=== PATIENT | male | born 1940 | race Caucasian/White ===

== ENCOUNTER 2017-01-08 13:04 | Inpatient (IN) | payer MEDICARE, BC ==
[~2017-01-08] VITALS: Ht 165.1 cm; Wt 68.0 kg
[~2017-01-08 13:04] MED LIST: ASPI-664 PO; ATOR20TA38 PO; CLOP75TA27 PO; LANT3I SC; NEPH PO; SEVE800T7 PO
[2017-01-08 13:20] VITALS: Ht 165.1 cm; Wt 68.0 kg
[2017-01-08] MEDS ORDERED: ACETAMINOPHEN 325 MG TAB PO ONE (15:00)
--- NOTE | 2017-01-08 15:25 | RADRPT ---
PROCEDURE: CT head without intravenous contrast CLINICAL INDICATION: Trauma. COMPARISON: None relevant listed. TECHNIQUE: Axial CT images from skull base to vertex with coronal and sagittal reformats. DOSE: The estimated administered radiation dose was CTDI vol = 42 mGy. DLP = 720 mGy-cm. One or mor e of the following dose reduction techniques were used: automated exposure control, adjustment of th e mA and/or kV according to patient size, or use of iterative reconstruction. FINDINGS: Parenchyma: No acute hemorrhage, large territorial infarction, or mass. Moderate amount of periventr icular and subcortical white matter hypodensity, a nonspecific finding often associated with chronic microangiopathy. Moderate generalized cerebral volume loss Ventricles: 8 mm homogeneously dense oval shaped lesion along the roof of the third ventricle, consi stent with the a colloid cyst No ventriculomegaly or ventricular effacement. Extra-axial spaces: No herniation or midline shift. Paranasal sinuses: Clear. Mastoids and middle ears: Clear. Visualized orbits: Bilateral lens replacements. Vessels: Mild calcified atherosclerotic arterial plaque. Bones: Normal. Extracranial soft tissues: Normal. Additional comment: None. IMPRESSION: 1. No acute intracranial hemorrhage. 2. 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 3. Chronic senescent findings characterized by volume loss and white matter changes. RPTAT: AA Physician Shayan Date Time Electronically viewed and signed by Physician Shayan on 01/08/2017 15:24 /
--- NOTE | 2017-01-08 15:40 | RADRPT ---
PROCEDURE: CT Cervical Spine without intravenous contrast CLINICAL INDICATION: Trauma. COMPARISON: None available. TECHNIQUE: Axial noncontrast CT images of the cervical spine with coronal and sagittal reformats. DOSE ESTIMATE: CTDI vol = 44 mGy. DLP = 1080 mGy-cm. One or more of the following dose reduction t echniques were used: automated exposure control, adjustment of the mA and/or kV according to patient size, or use of iterative reconstruction. FINDINGS: Alignment: Normal. Vertebrae: No fracture, vertebral body height loss, or destructive bone lesion. Discs: Mild desiccation with vacuum phenomenon at C4-C5. Degenerative change: Marked right C3-C4 facet arthropathy resulting in moderate right foraminal narr owing. Mild bilateral C4-C5 facet arthropathy. No significant central canal or foraminal narrowing. Paraspinal soft tissues: Normal. Visualized posterior fossa: Normal. Visualized neck: Cardiac device in the left chest. Mild calcified atherosclerotic arterial plaque. Visualized lung apices: Normal. Additional comment: None. IMPRESSION: 1. No acute fracture or subluxation. 2. Moderate degenerative changes at C3-C4. RPTAT: AA Physician Shayan Date Time Electronically viewed and signed by Physician Shayan on 01/08/2017 15:39 /
--- NOTE | 2017-01-08 15:50 | RADRPT ---
PROCEDURE: CT Lumbar Spine without intravenous contrast CLINICAL INDICATION: Low back pain after trauma. COMPARISON: None available. TECHNIQUE: Axial noncontrast CT images of the lumbar spine with coronal and sagittal reformats. DOSE ESTIMATE: CTDI vol = 20 mGy. DLP = 557 mGy-cm. One or more of the following dose reduction te chniques were used: automated exposure control, adjustment of the mA and/or kV according to patient size, or use of iterative reconstruction. FINDINGS: Segmentation: For this report the last well-formed disc is labeled L5-S1. Alignment: Normal. Vertebrae: No fracture, vertebral body height loss, or destructive bone lesion. Discs: No disc height loss. Degenerative change: T12-L1: 1 mm disc bulge, mild bilateral facet arthropathy, ligamentum flavum laxity without signific ant central canal narrowing. Mild bilateral foraminal narrowing. L1-L2: Moderate anterior endplate spurring. 2 mm disc bulge, ligamentum flavum laxity, and dorsal ep idural fat results in mild central canal narrowing, partial effacement of both lateral recesses, and mild left foraminal narrowing. L2-L3: 1 mm disc bulge, mild bilateral facet arthropathy, and ligamentum flavum laxity results in mo derate central canal narrowing, effacement of both lateral recesses, and moderate right foraminal na rrowing. L3-L4: Mild anterior endplate spurring. 2 mm disc bulge, moderate bilateral facet arthropathy, ligam entum flavum laxity, and dorsal epidural fat results in moderate to severe central canal narrowing, effacement of both lateral recesses, and moderate bilateral foraminal narrowing. L4-L5: 2 mm disc bulge, moderate bilateral facet arthropathy, ligamentum flavum laxity, and dorsal e pidural fat results in moderate to severe central canal narrowing, effacement of both lateral recess es, and moderate bilateral foraminal narrowing. L5-S1: 3 mm disc bulge, ligamentum flavum laxity, and circumferential epidural fat results in mild c entral canal air. Disc height loss contribute to mild bilateral foraminal narrowing. Para-vertebral soft tissues: Normal. Visualized abdomen and pelvis: Bilateral pleural effusions. Additional comment: Bony bridging about the sacroiliac joints. Aortoiliac atherosclerotic plaque. IMPRESSION: 1. Multilevel degenerative changes of the lumbar spine, most notable at L3-L4 and L4-L5. 2. Bilateral pleural effusions. RPTAT: AA France Baker, Physician Date Time Electronically viewed and signed by France Baker Physician on 01/08/2017 15:50 LG/
--- NOTE | 2017-01-08 15:58 | RADRPT ---
PROCEDURE: XR Chest. CLINICAL INDICATION: rib pain TECHNIQUE: Single frontal view of the chest was obtained COMPARISON: Chest x-ray 04/23/2015 FINDINGS: The previously seen right-sided central venous catheter has been removed. There are stable postsurgical changes of prior median sternotomy with mediasternotomy wires and medi astinal clips redemonstrated. Left chest wall dual lead pacer device is stable in position. The cardiac silhouette remains moderately enlarged. There are atherosclerotic calcifications of the aorta. There are decreased lung volume with increased bibasilar atelectasis compared to prior study. There is no mild blunting of the costophrenic angles bilaterally, suggesting trace bilateral pleural effusions. Mild central pulmonary vascular congestion is stable. No pneumothorax is identified. There are degenerative changes of the visualized spine. IMPRESSION: 1. Cardiomegaly and mild central pulmonary vascular congestion, stable. 2. Interval removal of right-sided central venous catheter. 3. Stable postsurgical changes prior CABG. 4. Left chest wall dual lead pacer device, stable. 5. Decreased lung volumes with increased bibasilar atelectasis. 6. New trace pleural effusions bilaterally. 7. Thoracic aortic atherosclerotic disease. RPTAT: GG Physician Michael Date Time Electronically viewed and signed by Physician Michael on 01/08/2017 15:58 /
[2017-01-08 16:12] LABS: ADD UMIC YES; UR ASCORBIC ACID NEGATIVE (NEGATIVE); UR BILIRUBIN (Dip) NEGATIVE (NEGATIVE); UR BLOOD (Dip) 1+ mg/dL (NEGATIVE); UR CLARITY SLIGHTLY CLOUDY (CLEAR); UR COLOR YELLOW (YELLOW); UR GLUCOSE (Dip) NEGATIVE (NEGATIVE); UR KETONES (Dip) TRACE mg/dL (NEGATIVE); UR LEUKOCYTE ESTERASE (Dip) 1+ Leu/ul (NEGATIVE); UR NITRITE (Dip) NEGATIVE (NEGATIVE); UR RBC 3 /HPF (0-5); UR SPECIFIC GRAVITY (Dip) 1.015 (1.003-1.030); UR TOTAL PROTEIN (Dip) 2+ mg/dl (NEGATIVE); UR UROBILINOGEN (Dip) NEGATIVE (NEGATIVE)
--- NOTE | 2017-01-08 17:06 | RADRPT ---
PROCEDURE: CT abdomen and pelvis without contrast. CLINICAL INDICATION: Pain status post fall TECHNIQUE: CT scan of the abdomen and pelvis without contrast was performed on a multislice [facility] utilizing axial imaging from the lung bases through the pubis symphysis. The patient was scann ed without intravenous contrast. Sagittal and coronal reformatted images were made. The CTDIvol is 11.36 mGy and the DLP is 831.92 mGycm. One of the following 3 does reduction techniques were used during this CT examination: 1) Automated exposure control 2) Adjustment of the mA +/- kV according to patient size or 3) Use of iterative reconstruction technique COMPARISON: No relevant priors FINDINGS: The lung bases are remarkable for bibasilar atelectasis or consolidation and moderate bilateral pleu ral effusions. Mild cardiomegaly is present with a dual lead pacemaker with leads in the right atriu m and right ventricle. The patient is status post median sternotomy. No pericardial effusion is pres ent. The visualized liver is normal size and attenuation. No focal lesions are present. The visualized sp devang, pancreas, decompressed gallbladder, and bilateral adrenal glands are normal. A small hiatal he rnia is present. The visualized kidneys demonstrate mild perinephric stranding. No evidence for hydroureteronephrosis or nephroureterolithiasis is present. The visualized aorta demonstrates vascular calcifications without aneurysmal dilatation. No evidence for ascites or pneumoperitoneum is present. No evidence for pathologic lymphadenopathy is present. The urinary bladder is mildly distended with a thickened wall. Recommend correlation with any prior urinary tract pathology. The prostate gland i s moderately enlarged and measures 3.6 cm AP by 5.5 cm in transverse dimensions. Recommend correlati on with prostate-specific antigen. No pelvic mass, lymphadenopathy, or free fluid is seen. There is no evidence of free air. The surrounding osseous structures are remarkable for generalized osteopenia. Degenerative changes a re present of the bilateral sacroiliac joints and the imaged spine. Diffuse idiopathic skeletal hyp erostosis is present in the thoracic spine. IMPRESSION: 1. Bibasilar atelectasis or consolidation and moderate bilateral pleural effusions. 2. Mild cardiomegaly and atherosclerotic vascular disease with bipolar pacemaker present. 3. No evidence for acute intra-abdominal or pelvic pathology. 4. Decompressed urinary bladder with thickened wall 5. Moderate prostatic enlargement and correlate with PSA. 6. Degenerative changes of the bilateral sacroiliac joints and the imaged spine is noted. RPTAT: HDC .Alena Kaye MD, Date Time Electronically viewed and signed by .Alena Kaye MD, on 01/08/2017 17:06 .C/
--- NOTE | 2017-01-08 17:10 | RADRPT ---
PROCEDURE: CT Chest. CLINICAL INDICATION: Chest pain following trauma TECHNIQUE: CT scan of the chest without contrast was performed on the [employer] CT scanner at [facility]. Sagittal and coronal reformatted images were obtained from the axial s ource images. The CTDIvol is 11.36 mGy and the DLP is 831.92 mGycm. One of the following 3 does reduction techniques were used during this CT examination: 1) Automated exposure control 2) Adjustment of the mA +/- kV according to patient size or 3) Use of iterative reconstruction technique COMPARISON: Chest x-ray 01/08/2017 FINDINGS: The visualized base of the neck and bilateral thyroid lobes are normal. The lungs are remarkable for bibasilar atelectasis or consolidation with moderate bilateral pleural effusions. No evidence for pulmonary nodules, masses, or pneumothorax is present. The central tracheobronchial tree is patent. The mediastinum is unremarkable without evidence for mass or lymphadenopathy. A small hiatal hernia is present. The vascular structures of the mediastinum are normal in course and caliber. Aortic vas cular calcifications and coronary artery calcifications are present. The heart size is remarkable fo r mild cardiomegaly without pericardial effusion. Pacemaker leads are noted in the right atrium and right ventricle para The visualized liver is normal size and attenuation without focal lesions. The imaged portions of th e spleen, pancreas, gallbladder, and bilateral adrenal glands are normal. The imaged portions of the kidneys are normal. The axillary regions, subpectoral regions, and supraclavicular regions are all unremarkable. The im aged portions of the spine demonstrate diffuse idiopathic skeletal hyperostosis without evidence for lytic or blastic lesions. The patient is status post median sternotomy with a left precordial dual lead pacemaker. IMPRESSION: 1. Bibasilar atelectasis or consolidation and moderate bilateral pleural effusions. 2. Small hiatal hernia 3. Mild cardiomegaly and atherosclerotic vascular disease 4. Left precordial dual lead pacemaker. RPTAT: HDC .Alena Kaye MD, Date Time Electronically viewed and signed by .Alena Kaye MD, on 01/08/2017 17:10 .C/
[2017-01-08] MEDS ORDERED: CEFTRIAXONE 1 GM/50 ML (PMX) 50 ML IVPB ONE ×2 (18:30→20:30)
[2017-01-08 19:04] LABS: BASOPHILS % 0.4 % (0.0-2.0); EOSINOPHILS # 0.1 10^3/ul (0.0-0.5); EOSINOPHILS % 0.6 % (0.0-7.0); HEMATOCRIT 32.5 % (42.0-52.0); HEMOGLOBIN 10.2 g/dl (14.0-18.0); LYMPHOCYTES # 1.2 10^3/ul (0.8-2.9); LYMPHOCYTES % 14.6 % (15.0-51.0); MEAN CORPUSCULAR HEMOGLOBIN 23.2 pg (29.0-33.0); MEAN CORPUSCULAR HGB CONC 31.4 g/dl (32.0-37.0); MEAN PLATELET VOLUME 12.1 fl (7.4-10.4); MONOCYTE # 0.4 10^3/ul (0.3-0.9); MONOCYTES % 4.9 % (0.0-11.0); NEUTROPHIL # 6.5 10^3/ul (1.6-7.5); PLATELET COUNT 225 10^3/UL (140-415); RED BLOOD COUNT 4.39 10^6/ul (4.70-6.10); RED CELL DISTRIBUTION WIDTH 15.4 % (11.5-14.5); WHITE BLOOD COUNT 8.2 10^3/ul (4.8-10.8)
[2017-01-08 19:19] LABS: INR 1.09; PROTIME 14.1 Sec (12.2-14.2); PT RATIO 1.1
[2017-01-08 19:20] LABS: PARTIAL THROMBOPLASTIN TIME 31.7 Sec (25.0-35.0)
[2017-01-08 19:25] LABS: ALBUMIN 4.4 g/dl (3.3-4.9); ALBUMIN/GLOBULIN RATIO 1.25; BILIRUBIN,INDIRECT 0.3 mg/dl (0-1.1); BILIRUBIN,TOTAL 0.3 mg/dl (0.2-1.3); CALCIUM 9.3 mg/dl (8.4-10.2); CREATININE 7.52 mg/dl (0.61-1.24); POTASSIUM 4.6 mmol/L (3.5-5.1); TOTAL PROTEIN 7.9 g/dl (6.1-8.1)
--- NOTE | 2017-01-08 19:35 | ERA ---
ER Documentation Chief Complaint Date/Time DATE: 01/08/17 TIME: 19:21 Chief Complaint Complains of back pain after a fall HPI This is a 76-year-old male with a past medical history of diabetes, end-stage renal disease on dialysis, on Plavix, who is presenting after a mechanical fall today. The patient does not endorse feeling dizzy or lightheaded. He reports getting tripped up at home, landing on his back. He has an abrasion to the back and endorses left lumbar paraspinal discomfort. He does not describe a headache or vision changes. He did not hit his head. He denies loss of consciousness. He denies neck pain. He denies chest pain. He does endorse mild trouble breathing and a congested productive cough of clear sputum that has been getting worse over the last month or so. When asked if the cough was related to his fall today, the patient denies it, but the family is not convinced. He denies abdominal pain. He has had no changes to bowel movements urination. Because of the fall, he missed his dialysis today. The patient does not endorse any focal deficits. He has no weakness or numbness or tingling to the face or extremities. ROS All systems reviewed and are negative except as per history of present illness. Medications Home Meds Reported Medications Clopidogrel Bisulfate* (Clopidogrel Bisulfate*) 75 Mg Tablet, 75 MG PO NEEDED , #30 TAB 01/08/17 Atorvastatin Calcium* (Atorvastatin Calcium*) 20 Mg Tablet, 20 MG PO QHS, #30 TAB 03/05/16 Insulin Glargine* (Lantus*) 100 Unit/Ml Soln, 50 UNIT SC QAM, #1 VIAL PATIENT TAKE 30-50 UNITS 03/05/16 Aspirin (Low Dose Aspirin) 81 Mg Tablet., 81 MG PO DAILY, #30 TAB 03/05/16 Sevelamer Carbonate* (Renvela*) 800 Mg Tablet, 1.6 GM PO WITH MEALS, TAB 03/05/16 Multivit/Ca Carb/B Cmplx/Fa* (Mariama-Alida*) 1 Tab Tab, 1 TAB PO DAILY, TAB 03/05/16 Discontinued Scripts Clopidogrel Bisulfate (Clopidogrel) 75 Mg Tab, 75 MG PO DAILY, #30 TAB 2 Refills Prov:MARIETTA POND MD 04/24/15 Allergies Allergies: Coded Allergies: No Known Allergy (Unverified , 01/08/17) PMhx/Soc History of Surgery: Yes (PACEMAKER,CABG,PCI) Anesthesia Reaction: No Hx Neurological Disorder: No Hx Respiratory Disorders: No Hx Cardiac Disorders: Yes (HTN,CAD,CARDIOLMYOPATHY,CHB.AFIB,HYPERLIPIDEMIA,PVD) Hx Psychiatric Problems: No Hx Miscellaneous Medical Probl: Yes (DIALYSIS ( [id number])) Hx Alcohol Use: No Hx Substance Use: No Hx Tobacco Use: Yes Smoking Status: Current every day smoker FmHx Family History: diabetes Physical Exam Vitals Vital Signs Date Time Temp Pulse Resp B/P Pulse Ox O2 Delivery O2 Flow Rate FiO2 01/08/17 20:20 98 27 92 21 01/08/17 13:20 97.4 86 20 125/59 95 Physical Exam Const: NAD, Well Developed, Well Nourished Head: Atraumatic Eyes: Normal Conjunctiva ENT: Normal External Ears, Nose and Mouth. Neck: Full range of motion. ~ No meningismus. Resp: Bibasilar rales Cardio: Regular rate and rhythm, no murmurs Abd: Soft, non tender, non distended. Normal bowel sounds Skin: No petechiae or rashes Back: No flank tenderness. lumbar left paraspinal tenderness, no step offs, no deformities Ext: No cyanosis, or edema Neur: Awake and alert, normal strength, normal sensation Psych: Normal Mood and Affect Result Diagram: 01/08/17 1750 01/08/17 175 Results 24 hrs Laboratory Tests Test 01/08/17 15:00 01/08/17 17:50 Urine Color YELLOW Urine Clarity SLIGHTLY CLOUDY Urine pH 6.0 Urine Specific [place] 1.015 Urine Ketones TRACEmg/dL Urine Nitrite NEGATIVEmg/dL Urine Bilirubin NEGATIVEmg/dL Urine Urobilinogen NEGATIVEmg/dL Urine Leukocyte Esterase 1+Ina/ul Urine Microscopic RBC 3/HPF Urine Microscopic WBC 22/HPF Urine Hemoglobin 1+mg/dL Urine Glucose NEGATIVEmg/dL Urine Total Protein 2+mg/dl White Blood Count 8.210^3/ul Red Blood Count 4.3910^6/ul Hemoglobin 10.2g/dl Hematocrit 32.5% Mean Corpuscular Volume 74.0fl Mean Corpuscular Hemoglobin 23.2pg Mean Corpuscular Hemoglobin Concent 31.4g/dl Red Cell Distribution Width 15.4% Platelet Count 78081^3/UL Mean Platelet Volume 12.1fl Neutrophils % 79.0% Lymphocytes % 14.6% Monocytes % 4.9% Eosinophils % 0.6% Basophils % 0.4% Nucleated Red Blood Cells % 0.0/100WBC Neutrophils # 6.510^3/ul Lymphocytes # 1.210^3/ul Monocytes # 0.410^3/ul Eosinophils # 0.110^3/ul Basophils # 0.010^3/ul Nucleated Red Blood Cells # 0.010^3/ul Prothrombin Time 14.1Sec Prothrombin Time Ratio 1.1 INR International Normalized Ratio 1.09 Activated Partial Thromboplast Time 31.7Sec Sodium Level 138mmol/L Potassium Level 4.6mmol/L Chloride Level 94mmol/L Carbon Dioxide Level 27mmol/L Anion Gap 22 Blood Urea Nitrogen 53mg/dl Creatinine 7.52mg/dl Glucose Level 162mg/dl Calcium Level 9.3mg/dl Total Bilirubin 0.3mg/dl Direct Bilirubin 0.00mg/dl Indirect Bilirubin 0.3mg/dl Aspartate Amino Transf (AST/SGOT) 23IU/L Alanine Aminotransferase (ALT/SGPT) 35IU/L Alkaline Phosphatase 70IU/L Troponin I 0.035ng/ml B-Type Natriuretic Peptide 86231UY/ML Total Protein 7.9g/dl Albumin 4.4g/dl Globulin 3.50g/dl Albumin/Globulin Ratio 1.25 Lipase 246U/L Current Medications Medications (Trade) Dose Ordered Sig/Baldemar Route PRN Reason Start Time Stop Time Status Last Admin Dose Admin Acetaminophen 650 mg 650 mg ONCE ONCE PO 01/08/17 15:00 01/08/17 15:01 DC 01/08/17 14:45 Ceftriaxone Sodium (Rocephin) 50 ml @ 100 mls/hr ONCE ONCE IVPB 01/08/17 18:30 01/08/17 18:59 DC 01/08/17 18:45 Albuterol (Proventil 0.083% (Neb)) 5 mg ONCE STAT NEB 01/08/17 20:19 01/08/17 20:20 DC 01/08/17 20:20 Ipratropium [place] 0.5 mg 0.5 mg ONCE STAT NEB 01/08/17 20:19 01/08/17 20:20 DC 01/08/17 20:20 Azithromycin 250 ml @ 250 mls/hr ONCE ONCE IVPB 01/08/17 20:30 01/08/17 21:29 DC 01/08/17 21:20 Ceftriaxone Sodium (Rocephin) 50 ml @ 100 mls/hr ONCE ONCE IVPB 01/08/17 20:30 01/08/17 20:59 DC Ondansetron HCl (Zofran Inj) 4 mg ER BRIDGE PRN IV NAUSEA AND/OR VOMITING 01/08/17 20:30 01/09/17 20:29 Acetaminophen (Tylenol Tab) 650 mg ER BRIDGE PRN PO MILD PAIN/FEVER 01/08/17 20:30 01/09/17 20:29 Procedures/MDM MDM Patient's presentation warrants further investigation. The patient's presenting after a fall. A trauma workup will be performed. Also missed dialysis today. Basic blood work will also be performed. LABS The patient's blood work was obtained and reviewed. The patient seemed shows no leukocytosis or left shift. The patient is afebrile, and I do not suspect a systemic infection. The patient is mildly anemic today, but this does not require emergent therapy. The patient's platelet count is unremarkable. The patient's CMP shows no signs of emergent electrolyte abnormality. The patient has normal hepatic function testing. The patient's BUN and creatinine are elevated, but he has known chronic kidney disease and missed dialysis today. His troponin and BNP are also elevated. These cardiac markers are affected by end-stage renal disease, but I do suspect heart failure in this patient given his pulmonary findings and history of rest of worsening cough and shortness of breath over the last month. The patient's urinalysis is positive for leukocyte esterase and white cells. There is no evidence of bacteria or nitrites. EKG EKG read by me: Rate/Rhythm: Regular rate and rhythm at a rate of 88 bpm Intervals: VT interval normal. QRS duration is prolonged with findings consistent with a left bundle branch block, borderline QTC [place]: Left shifted Does not meet any scarbosa criteria Unchanged from previous EKG on 03/06/2016 Impression: No evidence of acute ischemia IMAGING CXR IMPRESSION: Cardiomegaly and mild central pulmonary vascular congestion, stable. Interval removal of right-sided central venous catheter. Stable postsurgical changes prior CABG. Left chest wall dual lead pacer device, stable. Decreased lung volumes with increased bibasilar atelectasis. New trace pleural effusions bilaterally. Thoracic aortic atherosclerotic disease. Electronically viewed and signed by Physician Michael on 01/08/2017 15: 58 CT TAP IMPRESSION: 1. Bibasilar atelectasis or consolidation and moderate bilateral pleural effusions. 2. Mild cardiomegaly and atherosclerotic vascular disease with bipolar pacemaker present. 3. No evidence for acute intra-abdominal or pelvic pathology. 4. Decompressed urinary bladder with thickened wall 5. Moderate prostatic enlargement and correlate with PSA. 6. Degenerative changes of the bilateral sacroiliac joints and the imaged spine is noted. Electronically viewed and signed by .Alena Kaye MD, MD on 01/08/2017 17: 06 CT C-spine IMPRESSION: 1. No acute fracture or subluxation. 2. Moderate degenerative changes at C3-C4. Electronically viewed and signed by Physician Shayan on 01/08/2017 15: 39 CT L-spine IMPRESSION: 1. Multilevel degenerative changes of the lumbar spine, most notable at L3-L4 and L4-L5. 2. Bilateral pleural effusions. Electronically viewed and signed by Physician Shayan on 01/08/2017 15: 50 CT Head IMPRESSION: 1. No acute intracranial hemorrhage. 2. 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 3. Chronic senescent findings characterized by volume loss and white matter changes Electronically viewed and signed by Physician Shayan on 01/08/2017 15: 24 TREATMENT/DISPOSITION Patient does not have any obvious posttraumatic abnormalities. However, he does endorse persistent back pain and difficulty with ambulation. Additionally , I am suspicious of heart failure. The patient does have an elevated troponin , but I have less suspicion for an acute coronary syndrome. The patient does not require nitroglycerin at this time for his heart failure. The patient is oliguric and I do not intend on giving Lasix at this time. The patient will need hemodialysis. The patient's straddle carrier operator, Dr. Pond, was called to discuss the case. He will admit the patient to the hospital for further evaluation and management and dialysis in the morning. The patient's primary physician was also called and is aware that the patient will be admitted. The patient's urinalysis does show leukocyte esterase as well as white cells. However, there are no nitrites or bacteria. This could be a sterile pyuria. I do not intend on starting antibiotics immediately. However, the urine culture will be sent off. Departure Diagnosis: Primary Impression: Fall from ground level Additional Impressions: Back pain Qualified Code: M54.5 - Acute right-sided low back pain without sciatica CHF (congestive heart failure) Qualified Code: I50.9 - Acute on chronic congestive heart failure, unspecified congestive heart failure type Pleural effusion Condition: MIKEY Leone MD Jan 08, 2017 19:31
[2017-01-08] MEDS ORDERED: CLOP75TA4 PO (20:18)
[2017-01-08] MEDS ORDERED: ALBUTEROL 0.083% (NEB) 2.5 MG/3 ML AMP NEB STA (20:19)
[2017-01-08] MEDS ORDERED: IPRATROPIUM (NEB) 0.5 MG/2.5 ML AMP NEB STA (20:19)
[2017-01-08] MEDS ORDERED: AZITHROMYCIN 500MG/NS (PMX) 250 ML IVPB ONE (20:30)
[2017-01-08] MEDS ORDERED: ACETAMINOPHEN 325 MG TAB PO PRN (20:30)
[2017-01-08] MEDS ORDERED: ONDANSETRON 4 MG INJ IV PRN (20:30)
[2017-01-08 23:18] VITALS: TEMP 98.6
[2017-01-09] VITALS (20 sets, daily range): BP systolic 139–161; BP diastolic 72–87; PULSE 59–95; RESP 17–19
[2017-01-09] MEDS ORDERED: NITROGLYCERIN (SL) 0.4 MG TAB SL PRN (00:30)
[2017-01-09] MEDS ORDERED: ACETAMINOPHEN 325 MG TAB PO PRN (00:30)
[2017-01-09] MEDS ORDERED: HYDROCODONE/APAP (5/325) TAB PO PRN (00:30)
[2017-01-09] MEDS ORDERED: ONDANSETRON 4 MG INJ IV PRN (00:30)
[2017-01-09] MEDS ORDERED: NACL 0.9% 3 ML SYG IV SCH (00:30)
[2017-01-09] MEDS ORDERED: GLUCOSE GEL 15 GRAM TUBE BUCCAL PRN (00:45)
[2017-01-09] MEDS ORDERED: GLUCAGON 1 MG INJ IM PRN (00:45)
[2017-01-09] MEDS ORDERED: GLUCOSE GEL 15 GRAM TUBE PO PRN ×2 (00:45)
[2017-01-09] MEDS ORDERED: DEXTROSE 50% 50 ML SYRINGE IV PRN ×2 (00:45)
[2017-01-09] MEDS ORDERED: GUAIFENESIN/CODEINE 5ML CUP PO PRN (01:30)
[2017-01-09] MEDS: ACCU-CHEK XX SCH (02:00)
[2017-01-09] MEDS ORDERED: ACCU-CHEK XX SCH (02:00)
[2017-01-09] MEDS: INSULIN ASPART [NOVOLOG] 3 ML PEN SC SCH ×4 (07:57→20:57)
[2017-01-09 08:30] LABS: ABNORMAL IP MESSAGE 1; BASOPHILS % 0.2 % (0.0-2.0); HEMATOCRIT 33.2 % (42.0-52.0); HEMOGLOBIN 10.1 g/dl (14.0-18.0); LYMPHOCYTES # 1.2 10^3/ul (0.8-2.9); LYMPHOCYTES % 13.3 % (15.0-51.0); MEAN CORPUSCULAR HEMOGLOBIN 22.4 pg (29.0-33.0); MEAN CORPUSCULAR HGB CONC 30.4 g/dl (32.0-37.0); MEAN CORPUSCULAR VOLUME 73.6 fl (82.0-101.0); MEAN PLATELET VOLUME 13.1 fl (7.4-10.4); MONOCYTE # 0.4 10^3/ul (0.3-0.9); MONOCYTES % 4.7 % (0.0-11.0); NEUTROPHIL # 7.2 10^3/ul (1.6-7.5); NEUTROPHILS % 81.3 % (39.0-77.0); PLATELET COUNT 241 10^3/UL (140-415); POSITIVE DIFF @See below; RED BLOOD COUNT 4.51 10^6/ul (4.70-6.10); RED CELL DISTRIBUTION WIDTH 15.9 % (11.5-14.5); WHITE BLOOD COUNT 8.9 10^3/ul (4.8-10.8)
[2017-01-09 09:05] LABS: MAGNESIUM 2.4 mg/dl (1.7-2.5); PHOSPHORUS 6.4 mg/dl (2.5-4.9)
[2017-01-09 09:08] LABS: ALBUMIN 4.1 g/dl (3.3-4.9); ALBUMIN/GLOBULIN RATIO 1.32; BILIRUBIN,INDIRECT 0.3 mg/dl (0-1.1); BILIRUBIN,TOTAL 0.3 mg/dl (0.2-1.3); CALCIUM 9.2 mg/dl (8.4-10.2); CREATININE 8.04 mg/dl (0.61-1.24); POTASSIUM 5.3 mmol/L (3.5-5.1); TOTAL PROTEIN 7.2 g/dl (6.1-8.1)
[2017-01-09] MEDS ORDERED: INSULIN GLARGINE [LANtus] 3 ML PEN SC SCH (10:30)
--- NOTE | 2017-01-09 10:54 | HP ---
DATE OF ADMISSION: 01/08/2017 REASON FOR ADMISSION: The patient fell and injured his back and has been having increasing shortness of breath. HISTORY OF PRESENT ILLNESS: This 76-year-old man who is well known to me was in his usual state of health until yesterday when while standing near a cabinet he lost his balance, fell backwards and injured his back. He denies head trauma or loss of consciousness. The patient was seen in the emergency room and had a full x-ray series including chest x-ray, neck x-ray series, back x-rays, CT scan of the chest. The patient was not found to have any fractures. He was found to have pulmonary congestion with bilateral pleural effusions and some increased pulmonary vascular congestion. There were no definite infiltrate. The patient does admit to having a cough for several months. He says he coughs up some clear sputum. He denies fever or chills. The patient denies any focal neurologic deficits. The patient has end-stage renal disease and is on maintenance hemodialysis Thursday, , and Thursday. He missed his dialysis yesterday, which was . REVIEW OF SYSTEMS: GENERAL: Essentially unremarkable. He has no constitutional symptoms except for fatigue. HEENT: Ophthalmologic is negative. Ears, nose and throat negative. CARDIAC/PULMONARY: Cardio and respiratory he does have some cough of clear sputum. Denies chest pain. GASTROINTESTINAL: Negative. UROLOGIC: He does not make much urine as he has end-stage renal disease. PAST MEDICAL HISTORY: Remarkable for type 2 diabetes mellitus with diabetic nephropathy and end-stage renal disease, hypertension, hyperlipidemia, glaucoma, secondary hyperparathyroidism, lactose intolerance, and lower extremity claudication. SURGICAL HISTORY: Coronary artery bypass grafting in [place] in 2003, appendectomy, bilateral cataract extraction, coronary artery stents, pacemaker. FAMILY HISTORY: Father of cancer. Mother of diabetes. He has a sibling with Alzheimer's. SOCIAL HISTORY: He is does not smoke now. Was a former smoker. Drinks alcohol socially. MEDICATIONS: 1. Glargine insulin 50 units every morning. 2. Plavix 75 mg a day. 3. Atorvastatin 20 mg a day. 4. Aspirin 81 mg a day. 5. Renvela 1.6 gram with each meal. 6. Multivitamins 1 daily. ALLERGIES: HE HAS NO KNOWN DRUG ALLERGIES. PHYSICAL EXAMINATION: GENERAL APPEARANCE: At this time reveals a well-developed man in no apparent distress. He is awake and alert. VITAL SIGNS: Temperature 97.9, pulse 97, respirations 19, blood pressure 161/82, and O2 sat 94 percent on room air. HEENT: Head normocephalic. Eyes, extraocular muscles intact. Nose and mouth are normal. There is no signs of head trauma. NECK: Supple. No neck vein distention. LUNGS: Clear to auscultation. HEART: Regular rhythm. No murmurs, gallops, or rubs. There is a pacemaker in place in the left upper chest wall. ABDOMEN: Soft, nontender. No masses or megaly. EXTREMITIES: No peripheral edema. NEUROLOGIC: Grossly intact. No obvious neurologic deficits. DIAGNOTIC DATA: Chest x-ray does show 2 small bilateral pleural effusions with cardiomegaly and mild central pulmonary vascular congestion and a left-sided pacemaker. IMPRESSION: 1. End-stage renal disease, on maintenance hemodialysis. He did miss dialysis treatment yesterday. 2. Congestive heart failure and fluid overload. 3. Type 2 diabetes mellitus. 4. Fall with back injury, but no obvious fractures ,all soft- tissue injury. 5. Hypertension. 6. Coronary artery disease. 7. Pacemaker. PLAN: 1. Patient will be dialyzed today and will have dialysis tomorrow to get him back on his regular schedule. 2. I will continue the Zithromax because of his cough, although he does not have pneumonia on his chest x-ray. 3. Resume routine medications. 4. Patient could be discharged possibly next day or 2 if his pulmonary symptoms improve and he is ambulating well. Dictated By: Andrea Powers MD /tere/emerson /Document#: [id number]
[2017-01-09] MEDS: AZITHROMYCIN 250 MG TAB PO SCH (11:27)
[2017-01-09] MEDS: CLOPIDOGREL 75 MG TAB PO SCH (11:27)
[2017-01-09] MEDS: ASPIRIN (EC) 81 MG TAB PO SCH (11:27)
[2017-01-09] MEDS: INSULIN GLARGINE [LANtus] 3 ML PEN SC SCH (11:33)
[2017-01-09] MEDS: SEVELAMER CARBONATE 0.8 GM PKT PO SCH ×2 (12:02→16:43)
[2017-01-09] MEDS ORDERED: ATORVASTATIN 20 MG TAB PO SCH (21:00)
[2017-01-10] VITALS (13 sets, daily range): BP systolic 102–147; BP diastolic 61–75; PULSE 79–89; RESP 18–20
[2017-01-10] MEDS: ACCU-CHEK XX SCH (02:00)
[2017-01-10] MEDS: INSULIN ASPART [NOVOLOG] 3 ML PEN SC SCH (08:00)
[2017-01-10] MEDS: CLOPIDOGREL 75 MG TAB PO SCH (08:53)
[2017-01-10] MEDS: ASPIRIN (EC) 81 MG TAB PO SCH (08:53)
[2017-01-10] MEDS: SEVELAMER CARBONATE 0.8 GM PKT PO SCH (08:53)
[2017-01-10] MEDS: AZITHROMYCIN 250 MG TAB PO SCH (08:53)
[2017-01-10] MEDS: INSULIN GLARGINE [LANtus] 3 ML PEN SC SCH (09:00)
[2017-01-10] MEDS ORDERED: MULTIVIT/CA CARB/B CMPLX/FA TAB PO SCH (09:00)
--- NOTE | 2017-01-10 10:12 | DS ---
Date/Time of Note Date/Time of Note DATE: 01/10/17 TIME: 10:09 Discharge Summary Admission/Discharge Info Admit Date/Time Jan 08, 2017 at 20:34 Discharge Date/Time Discharge Diagnosis chest contusion chf Patient Condition: Good Hospital Course post fall with chest injury. ER eval with ct chest without fractures but bilateral effusions. Dialyzed aggressively and less sob and ambulatory with stable vital signs and no drop in H and H of significance. Home Meds Reported Medications Clopidogrel Bisulfate* (Clopidogrel Bisulfate*) 75 Mg Tablet, 75 MG PO NEEDED , #30 TAB 01/08/17 Atorvastatin Calcium* (Atorvastatin Calcium*) 20 Mg Tablet, 20 MG PO QHS, #30 TAB 03/05/16 Insulin Glargine* (Lantus*) 100 Unit/Ml Soln, 50 UNIT SC QAM, #1 VIAL PATIENT TAKE 30-50 UNITS 03/05/16 Aspirin (Low Dose Aspirin) 81 Mg Tablet.dr 81 MG PO DAILY, #30 TAB 03/05/16 Sevelamer Carbonate* (Renvela*) 800 Mg Tablet, 1.6 GM PO WITH MEALS, TAB 03/05/16 Multivit/Ca Carb/B Cmplx/Fa* (Mariama-Alida*) 1 Tab Tab, 1 TAB PO DAILY, TAB 03/05/16 Discontinued Scripts Clopidogrel Bisulfate (Clopidogrel) 75 Mg Tab, 75 MG PO DAILY, #30 TAB 2 Refills Prov:MARIETTA POND MD 04/24/15 Follow-up Plan Dr. Pond on dialysis Primary Care Provider Bill Jolly MD Time spent on discharge: > 30 minutes Pending Labs Laboratory Tests Test 01/09/17 11:24 01/09/17 16:41 01/09/17 20:56 01/10/17 08:51 Bedside Glucose 227mg/dL (70-220) 221mg/dL (70-220) 180mg/dL (70-220) 116mg/dL (70-220) CALIXTO GODINEZ MD Jan 10, 2017 10:12
--- NOTE | 2017-01-10 10:17 | PDOCDIS ---
Discharge Instructions DIAGNOSIS Discharge Diagnosis chest contusion chf CONDITION Patient Condition: Good HOME CARE INSTRUCTIONS: Special Diet: renal ACTIVITY: Activity Restrictions: No Restrictions FOLLOW UP/APPOINTMENTS Follow-up Plan Dr. Jara on dialysis CALIXTO GODINEZ MD Jan 10, 2017 10:17
[2017-01-10] MEDS ORDERED: INFLUENZA VIRUS VACCINE 0.5 ML (DISPENSING) IM* ONE (12:00)
== END 2017-01-10 11:45 | disposition home or self-care (01) | DRG 604 ==
LOC: FTE 13:04 → MS4 20:34
PROVIDERS: ADMIT Internal Medicine; ATTEND Internal Medicine
PROC: 5A1D00Z (ICD-10-PCS; principal; 2017-01-09)
DX: S20.219A Contusion of unspecified front wall of thorax, initial encounter (principal); N18.6 End stage renal disease; I13.2 Hypertensive heart and chronic kidney disease with heart failure and with stage 5 chronic kidney disease, or end stage renal disease; J90 Pleural effusion, not elsewhere classified; N25.81 Secondary hyperparathyroidism of renal origin; E11.22 Type 2 diabetes mellitus with diabetic chronic kidney disease; I50.9 Heart failure, unspecified; I25.10 Atherosclerotic heart disease of native coronary artery without angina pectoris; E78.5 Hyperlipidemia, unspecified; E73.9 Lactose intolerance, unspecified; W01.0XXA Fall on same level from slipping, tripping and stumbling without subsequent striking against object, initial encounter; Y92.019 Unspecified place in single-family (private) house as the place of occurrence of the external cause; Y99.8 Other external cause status; Y93.89 Activity, other specified; Z99.2 Dependence on renal dialysis; Z79.4 Long term (current) use of insulin; Z79.84 Long term (current) use of oral hypoglycemic drugs; Z87.891 Personal history of nicotine dependence; Z95.0 Presence of cardiac pacemaker; Z95.1 Presence of aortocoronary bypass graft; Z95.5 Presence of coronary angioplasty implant and graft
CPT/HCPCS: 36415; 70450; 71010; 71250; 72125; 72131; 74176; 80053; 81001; 82962; 83690; 83735; 83880; 84100; 84484; 85025; 85610; 85730; 87086; 90686; 90935; 93005; 94664; 96374; 96375; 97161; J0456; J0696; J1815